=== PATIENT | male | born 1995 | race Caucasian/White ===

== ENCOUNTER 2017-10-03 11:09 | Inpatient (IN) | payer BC, OTHER ==
[~2017-10-03] VITALS: Ht 185.4 cm; Wt 73.5 kg
--- NOTE | 2017-10-03 13:16 | NUR ---
PREADMISSION Pt 22 y/o male admitted for polysubstance abuse/ withdrawal. Pt came from [facility]. Pt states he is homeless. Pt alert and oriented to name, place, and time. P[place]. Skin warm and moist to touch. Respirations even and unlabored. Bilateral hand tremors noted. Pt appears disheveled, unkempt, and malodorous. Hair uncombed. Pt anxious and restless, not able to sit still during assessment. Observed tapping foot during assessment. Initial ciwa=4 cows=8. Initial b=113/78 p=77 o2=97%@ra R=16 T=98.3. Pt was seen and evaluated by . Explained unit rules to pt with acknowledgement.
[2017-10-03] MEDS ORDERED: GABA600T2 PO (13:18)
[2017-10-03] MEDS ORDERED: GABA-534 PO (13:18)
--- NOTE | 2017-10-03 13:18 | NUR ---
ADMISSION Pt 22 y/o male admitted for polysubstance abuse/ withdrawal. Pt came from [facility]. Pt states he is homeless. Pt alert and oriented to name, place, and time. Perrla. Skin warm and moist to touch. Respirations even and unlabored. Bilateral hand tremors noted. Pt with skin clear. Pt mildly intoxicated. Pt appears disheveled, unkempt, and malodorous. Hair uncombed. Pt anxious and restless, not able to sit still during assessment. Observed tapping foot during assessment. Initial ciwa=4 cows=8. Initial b=113/78 p=77 o2=97%@ra R=16 T=98.3. Pt denies any SZ history. Pt was seen by MD and started on a 3 day valium and 4 day subutex taper, beginning today. Pt states does not have PCP. Oriented pt to unit and room. Bed on lowest position with side rails x2 up for safety. Call light within reach. Pt states longest period of sobriety was for 1 year and about 3months, but recently relapsed. Pt states has poor impulse control. Pt states," I need help. I need to stop. I don't want to . I need a place where I can stay longer in treatment to help me." Pt states his internal motivator,""Knowing that I deserve more in life than I'm giving myself now.". Pt states has been to multiple treatments recently but not able to complete treatment. substance hx: -suboxone SL 8 mg day x 1.5 days. Last used 10/03/17 4mg. Total 1.5 days -valium po unknown dose daily x 1.5 days. Last used 10/03/17 unknown dose. Total 1.5 days. -ativan po 1mg daily x 1week. Last used 09/30/17 1mg. Total 1 week. -xanax po/snort 1-3 bars daily x 3months. Last used 09/30/17 1 bar. Total 5 years -heroin smoke1 daily x 3months. Last used 09/30/17 and used about or less than 1gm. Total 2 years -Fentanyl smoked 0.5gm daily x1 month. Last used 09/30/17 0.5gm. Total 1 month -Adderral po unknown dose and not able to specify last use. treatment hx: -[facility] 09/30/17-10/03/17 -[facility] 09/23/17-09/29/17 medical hx: asthma
[2017-10-03] MEDS ORDERED: CLON0.1T PO (13:22)
[2017-10-03] MEDS ORDERED: ONDA4TAB5 PO (13:24)
[2017-10-03] MEDS ORDERED: TRAZ-147 PO (13:26)
[2017-10-03] MEDS ORDERED: CLONIDINE HCL 0.1 MG TABLET PO PRN (13:30)
[2017-10-03] MEDS ORDERED: IBUPROFEN 600 MG TABLET PO PRN (13:30)
[2017-10-03] MEDS ORDERED: diphenhydrAMINE 50 MG CAPSULE PO PRN (13:30)
[2017-10-03] MEDS ORDERED: LOPERAMIDE HCL 2 MG CAPSULE PO PRN ×2 (13:30)
[2017-10-03] MEDS ORDERED: MIRALAX 17 GM POWD.PACK PO PRN (13:30)
[2017-10-03] MEDS ORDERED: DIAZEPAM 10 MG TABLET PO PRN ×2 (13:30)
[2017-10-03] MEDS ORDERED: ACETAMINOPHEN 325 MG TABLET PO PRN (13:30)
[2017-10-03] MEDS ORDERED: DIAZEPAM 5 MG TABLET PO PRN (13:30)
[2017-10-03] MEDS ORDERED: BUPRENORPHINE HCL 2 MG TAB.SUBL SL PRN (13:30)
[2017-10-03] MEDS ORDERED: NICOTINE POLACRILEX 4 MG GUM-PK OF TEN BC PRN (13:30)
[2017-10-03] MEDS ORDERED: MAGNESIUM HYDROXIDE 30 ML LIQUID UDC PO PRN (13:30)
[2017-10-03] MEDS ORDERED: MAG HYDROX/AL HYDROX/SIMETH 30 ML LIQUID UDC PO PRN (13:30)
[2017-10-03] MEDS ORDERED: ONDANSETRON ODT 4 MG TAB.RAPDIS SL PRN (13:30)
[2017-10-03] MEDS ORDERED: DICYCLOMINE HCL 20 MG TABLET PO PRN (13:30)
[2017-10-03] MEDS ORDERED: ONDANSETRON 4 MG/2 ML VIAL IM PRN (13:30)
[2017-10-03] MEDS ORDERED: NICOTINE 14 MG/24HR PATCH TD PRN (13:30)
[2017-10-03] MEDS ORDERED: METH-406 PO (13:45)
[2017-10-03] MEDS ORDERED: ALBU18HF2 INH (13:46)
[2017-10-03 14:53] LABS: *AMPHETAMINE, URINE POSITIVE (NEGATIVE); *BARBITURATE, URINE NEGATIVE (NEGATIVE); *CANNABINOID, URINE NEGATIVE (NEGATIVE); *COCCAINE, URINE NEGATIVE (NEGATIVE); *OPIATE, URINE POSITIVE (NEGATIVE); *PHENCYCLIDINE SCREEN,URINE NEGATIVE (NEGATIVE)
[2017-10-03 15:00] LABS: BASOPHILS % (AUTO) 0.2 % (0.0-2.0); EOSINOPHILS # (AUTO) 0.6 K/uL (0.0-0.7); EOSINOPHILS % (AUTO) 8.3 % (0.0-7.0); HEMOGLOBIN 16.1 g/dL (12.5-16.3); LYMPHOCYTES # (AUTO) 2.4 K/uL (20.0-40.0); LYMPHOCYTES % (AUTO) 35.7 % (20.5-51.5); MEAN CORPUSCULAR HEMOGLOBIN 31.4 uug (23.8-33.4); MEAN CORPUSCULAR HGB CONC 35 g/dL (32.5-36.3); MEAN CORPUSCULAR VOLUME 89.7 fL (73.0-96.2); MONOCYTES # (AUTO) 0.4 K/uL (2.0-10.0); MONOCYTES % (AUTO) 5.5 % (0.0-11.0); NEUTROPHILS # (AUTO) 3.4 K/uL (1.8-8.9); NEUTROPHILS % (AUTO) 50.3 % (38.5-71.5); PLATELET COUNT (AUTO) 232 K/uL (152-348); RED BLOOD CELL COUNT(AUTO) 5.13 MIL/uL (4.06-5.63); WHITE BLOOD COUNT (AUTO) 6.8 K/uL (3.6-10.2)
[2017-10-03 15:11] LABS: ALANINE AMINOTRANSFERASE 28 U/L (16-63); ALKALINE PHOSPHATASE 56 U/L (50-136); ASPARTATE AMINOTRANSFERASE 14 U/L (15-37); BILIRUBIN,TOTAL 0.3 mg/dL (0.2-1.0); CARBON DIOXIDE 26 mmol/L (21-32); CHLORIDE 105 mmol/L (98-107); CREATININE 1.1 mg/dL (0.6-1.3); GLUCOSE 117 mg/dL (74-106); POTASSIUM 3.8 mmol/L (3.5-5.1); TOTAL PROTEIN, SERUM 6.8 g/dL (6.4-8.2); UREA NITROGEN, BLOOD 16 mg/dL (7-18)
[2017-10-03] MEDS: DIAZEPAM 10 MG TABLET PO SCH ×2 (15:19→22:32)
[2017-10-03] MEDS: BUPRENORPHINE HCL 2 MG TAB.SUBL SL SCH ×2 (15:19→21:00)
[2017-10-03] MEDS: METHOCARBAMOL 750 MG TABLET PO PRN (15:19)
--- NOTE | 2017-10-03 15:21 | NUR ---
PRN Pt with complaints of body aches 7/10 generalized. Robaxin po prn per MD order given and tolerated well.
[2017-10-03 15:23] LABS: ETHANOL < 3 MG/DL (0-0)
[2017-10-03 16:00] VITALS: BP 88/40
--- NOTE | 2017-10-03 16:00 | NUR ---
CIWA/ COWS DEFERRED Pt in room on bed with eyes closed resting, but arousable to name, moves and changes position on bed, but closes eyes after. cows/ciwa deferred.
--- NOTE | 2017-10-03 16:21 | NUR ---
HEAVEN BIANCHI Pt observed on bed in room with eyes closed resting, but arousable to name.
[2017-10-03 17:00] VITALS: BP 92/58
--- NOTE | 2017-10-03 18:38 | NUR ---
END OF SHIFT Pt 22 y/o male admitted for polysubstance abuse/ withdrawal. Pt alert and oriented to name, place, and time. Perrla. Skin warm and moist to touch. Respirations even and unlabored. Bilateral hand tremors noted. Pt appears disheveled and unkempt. Empty water bottles scattered throughout the room. Encouraged to maintain hygiene. Pt admitted this afternoon. Pt isolative to room since admission. Pt was seen by MD today. Pt did not attend group activity. Pt started on a 3 day valium taper and is on day 1. Pt also started on a 4 day subutex taper and is on day 1. Bed on lowest position with side rails x2 up for safety. Call light within reach.
--- NOTE | 2017-10-03 19:12 | NUR ---
Start of shift note Received report from day shift nurse. Pt is a 22 yo male, A+Ox4, presenting to [facility] for Benzo/Opiate withdrawal. Pt noted with restlessness, anxiety, sweats, chills, and agitation. Pt has HX of Asthma, Anxiety, ADHD, and depression which will be monitored during shift. Pt is on 3 day Valium and 4 day Subutex tapers, tolerated well. Respirations even and unlabored. Will continue to monitor.
[2017-10-03 20:08] VITALS: BP 112/63
[2017-10-03] MEDS: GABAPENTIN 300 MG CAPSULE PO SCH (22:33)
[2017-10-03] MEDS: TRAZODONE 100 MG TABLET PO PRN (23:35)
--- NOTE | 2017-10-03 23:35 | NUR ---
PRN Trazodone Pt c/o inability to sleep and requested for PRN Trazodone. Medication given and tolerated well. Will reassess within 1 HR. Will continue to monitor.
--- NOTE | 2017-10-04 00:30 | NUR ---
PRN Trazodone Reassessment Medication effective. Pt is resting well in bed. No s/s of ASE noted at this time. Respirations even and unlabored. Will continue to monitor.
[2017-10-04 00:40] VITALS: BP 118/67
[2017-10-04 04:08] VITALS: BP 114/69
--- NOTE | 2017-10-04 06:54 | NUR ---
End of shift note Pt was continuously noted with agitation, anxiety, and restlessness. Pt was in room for majority of shift except to get food from kitchen, to go smoke on smoking on smoking patio, and to interact with other patients in recreational room. Pt was given PRN Trazodone @2335. Pt slept for a total of 8 HRS. Last COWS: 7 and Last CIWA: 7 @0400. Respirations tyson and unlabored. Will endorse to day shift nurse.
--- NOTE | 2017-10-04 07:25 | NUR ---
START OF SHIFT Pt 22 y/o male admitted for polysubstance abuse/ withdrawal. Pt received in room on bed with eyes closed resting, but easily arousable to name. Pt alert and oriented to name, place, and time. Perrla. Skin warm and moist to touch. Respirations even and unlabored. Bilateral hand tremors noted. Pt observed restless in bed this morning, not able to lay still. Pt appears disheveled and unkempt. Food wrappings and empty water bottles scattered throughout the room. Encouraged to maintain hygiene. It was reported that pt slept for 8 hours last night. Last cows=7 ciwa=7 reported at 0400. Bed on lowest position with side rails x2 up for safety. Call light within reach. Addendum: 10/04/17 at 0805 by SUMAN ANGEL RN additional Pt is on a 3 day valium taper and is on day 2. Pt is also on a 4 day subutex taper and is on day 2.
[2017-10-04 08:19] VITALS: BP 102/62
[2017-10-04] MEDS: GABAPENTIN 300 MG CAPSULE PO SCH ×2 (08:24→22:38)
[2017-10-04] MEDS: DIAZEPAM 5 MG TABLET PO SCH ×3 (08:24→22:38)
--- NOTE | 2017-10-04 08:33 | NUR ---
PRN Pt with c/o wheezing. Albuterol inh prn per MD order given and tolerated well.
[2017-10-04] MEDS: VENTOLIN INH PRN ×2 (08:38→13:55)
[2017-10-04] MEDS: BUPRENORPHINE HCL 2 MG TAB.SUBL SL SCH ×3 (08:38→21:00)
[2017-10-04] MEDS ORDERED: TUBERCULIN,PURIF.PROT.DERIV. 5 TU/0.1 ML TEST ID ONE (09:00)
[2017-10-04] MEDS ORDERED: HYDROXYZINE PAMOATE 25 MG CAPSULE PO PRN (09:00)
--- NOTE | 2017-10-04 09:33 | NUR ---
PRN EVAL Pt denies any dyspnea at this time.
[2017-10-04 11:07] LABS: HEPATITIS B SURFACE AG Negative (Negative)
--- NOTE | 2017-10-04 12:00 | NUR ---
COWS/ CIWA DEFERRED Pt in bed in room with eyes closed resting, arousable to name. Respirations even and unlabored.
[2017-10-04 12:27] VITALS: BP 129/64
--- NOTE | 2017-10-04 13:55 | NUR ---
PRN Pt with c/o wheezing. Albuterol inh prn per MD order given and tolerated well.
--- NOTE | 2017-10-04 14:55 | NUR ---
PRN EVAL Pt denies any dyspnea at this time.
[2017-10-04 16:00] VITALS: BP 95/58
--- NOTE | 2017-10-04 18:41 | NUR ---
END OF SHIFT Pt 22 y/o male admitted for polysubstance abuse/ withdrawal. Pt alert and oriented to name, place, and time. Perrla. Skin warm and moist to touch. Respirations even and unlabored. Bilateral hand tremors noted. Pt with periods of anxiety this morning. Pt appears disheveled and unkempt. Empty water bottles scattered throughout the room. Encouraged to maintain hygiene. Pt admitted this afternoon. Pt isolative to room for most of day. Pt did not attend group activity today. Pt was seen by MD today. Pt medication compliant and tolerated well. No ASE noted. Pt started on a 3 day valium taper and is on day 2. Pt also started on a 4 day subutex taper and is on day 2. Cows=9@0800, deferred@1200, and 9@1600. Ciwas=9@0800, deferred @1200, and 9@1600. Bed on lowest position with side rails x2 up for safety. Call light within reach.
--- NOTE | 2017-10-04 19:15 | NUR ---
Start of shift note Received report from day shift nurse. Pt is a 22 yo male, A+Ox4, presenting to [facility] for Benzo/Opiate withdrawal. Pt noted to be anxious, agitated, odorous, and restless. Pt has HX of Asthma, Anxiety, ADHD, and depression. Pt is on 3 day Valium and 4 day Subutex tapers, tolerated well. Respirations even and unlabored. Will continue to monitor.
[2017-10-04 20:23] VITALS: BP 127/77
[2017-10-04] MEDS: TRAZODONE 100 MG TABLET PO PRN (22:38)
--- NOTE | 2017-10-04 22:38 | NUR ---
PRN Trazodone Pt c/o inability to sleep and requested for PRN Trazodone. Medication given and tolerated well. Will reassess within 1 HR. Will continue to monitor.
[2017-10-05 00:28] VITALS: BP 124/71
[2017-10-05 04:25] VITALS: BP 118/75
--- NOTE | 2017-10-05 06:55 | NUR ---
End of shift note Pt was continuously noted with anxiety, restlessness, and agitation. Pt remained in room for majority of shift except to go smoke on smoking patio, to get food from kitchen, and to interact with other patients in recreational room. Pt was given PRN Trazodone @2238. Pt slept for a total of 8 HRS. Last COWS: 9 and Last CIWA: 9 @0400. Respirations even and unlabored. Will endorse to day shift nurse.
--- NOTE | 2017-10-05 07:05 | NUR ---
Start of Shift Commercial Agent received report on 22 year old male admitted to [facility] on 10/03/17 for medical management of Opiate, Adderall and Benzodiazepine withdrawals. Pt endorses allergies to rabbit dander , is a full code and eats a regular diet. Endorses PMH of asthma with a PPH of anxiety, ADHD and Depression DO. Pt currently on a Subutex and Valium taper, tolerating well, last COWS 9 and CIWA 9, per NOC report. Pt has been refusing Subutex and has been taking Valium to help with the anxiety. Pt was administered Trazodone(insomnia) PRN on NOC, per report. Commercial Agent encounters pt resting in pts room with eyes closed, rise and fall of chest noted. Even and unlabored respirations. Bed in low position, with wheels locked and side rails up x2. Will continue to monitor, support and encourage according to plan of care.
[2017-10-05 08:18] VITALS: BP 98/48
[2017-10-05] MEDS: BUPRENORPHINE HCL 2 MG TAB.SUBL SL SCH ×2 (09:00→21:00)
--- NOTE | 2017-10-05 09:00 | NUR ---
0900 Subutex Pt refuses scheduled Subutex. is aware.
[2017-10-05] MEDS: VENTOLIN INH PRN ×2 (09:33→16:47)
--- NOTE | 2017-10-05 09:35 | NUR ---
PRN PT REQUESTED HIS INHALER; ALBUTEROL INHALER PRN GIVEN FOR DYSPNEA. SAFETY MEASURES IN PLACE.
[2017-10-05] MEDS: GABAPENTIN 300 MG CAPSULE PO SCH ×3 (09:37→21:42)
[2017-10-05] MEDS: DIAZEPAM 5 MG TABLET PO SCH ×2 (09:37→21:42)
[2017-10-05 12:20] VITALS: BP 119/70
[2017-10-05] MEDS ORDERED: CLON0.1T14 PO (13:06)
[2017-10-05] MEDS ORDERED: IBUP-1955 PO (13:06)
[2017-10-05] MEDS ORDERED: DICY20TA28 PO (13:06)
[2017-10-05] MEDS ORDERED: GABA-534 PO (13:06)
[2017-10-05] MEDS ORDERED: HYDR-3895 PO (13:06)
[2017-10-05] MEDS ORDERED: METH-406 PO (13:06)
[2017-10-05] MEDS: METHOCARBAMOL 750 MG TABLET PO PRN ×2 (14:40→23:19)
--- NOTE | 2017-10-05 14:40 | NUR ---
HEAVEN Swann Pt complain of generalized muscle aches and discomfort and requested medication by name. Front Sight Attacher administered medication per order and pt tolerated well. Will continue to monitor, support and encourage according to plan of care.
--- NOTE | 2017-10-05 15:40 | NUR ---
PRN Re-Assessment Pt endorses relief, " not as bad, it is tolerable." Pt resting, will continue to monitor, support and encourage according to plan of care.
[2017-10-05 16:45] VITALS: BP 122/77
--- NOTE | 2017-10-05 16:47 | NUR ---
PRN PT C/O SOB AND REQUESTED HIS INHALER. ALBUTEROL INH GIVEN AND PT TOLERATED WELL.
--- NOTE | 2017-10-05 19:05 | NUR ---
End of Shift Health It Specialist provided. report on 22 year old male admitted to [facility] on 10/03/17 for medical management of Opiate, Adderall and Benzodiazepine withdrawals. Pt endorses allergies to rabbit dander , is a full code and eats a regular diet. Endorses PMH of asthma with a PPH of anxiety, ADHD and Depression DO. Pt currently on a Subutex and Valium taper, tolerating well, last COWS 8 and CIWA 7. Pt refused his Subutex medication this am, made aware. Pt was administered Inhaler(SOB) x2 and Robaxin(muscle spasms) PRN on this shift. Pt is A/O x4 and able to make needs known. Bright affect with a congruent mood, social with peers and staff. Calm, cooperative and pleasant. Bed in low position, with wheels locked and side rails up x2. Will continue to monitor, support and encourage according to plan of care.
--- NOTE | 2017-10-05 19:15 | NUR ---
Start of Shift Note: Patient is a 22 y.o male admitted on 10/03/17 for medically supervised withdrawal from Opiate and Benzo withdrawals. Patient is alert & oriented x4. Patient appears disheveled, has anxious/irritable mood. Pt presented with complaints of sweating, chills, nausea, generalized body aches & stuffy nose. Pt is on Subutex and Valium taper. Pt has been refusing Subutex and only takes Valium taper. Last COWS 8 CIWA 7. Pt received PRN Robaxin and Albuterol during day shift and was effective per report. Encourage attends groups and socialize with other patients. Encourage pt to increase fluid intake. Educated current plan of care. Safety measures in place. Will continue to closely monitor patient.
[2017-10-05 20:00] VITALS: BP 130/79
--- NOTE | 2017-10-05 21:00 | NUR ---
2100 Subutex Pt refused scheduled Subutex at 2100. Per pt, he does not need it and he is okay with just taking the Valium taper. COWS 8 noted at this time. Explained risk and benefits of refusing medication but pt still refused. Will continue to monitor patient.
--- NOTE | 2017-10-05 21:42 | NUR ---
PRN Clonidine/Motrin/Zofran Patient complained with 7/10 generalized body aches, sweating, chills, & nausea with no episode of vomiting. Non-pharmacological intervention provided but ineffective. PRN Clonidine, Motrin & Zofran SL administered as ordered. Will monitor for effectiveness of medication.
--- NOTE | 2017-10-05 22:42 | NUR ---
PRN Reassessment Patient verbalized improved nausea, decreased in sweating, chills & pain from 7/10 to 4/10 after medication administration. Pt observed ambulating in the hallway with no facial grimacing noted. Patient appears calm. Safety measures in place. Will continue to monitor patient.
[2017-10-05] MEDS: TRAZODONE 100 MG TABLET PO PRN (23:19)
--- NOTE | 2017-10-05 23:19 | NUR ---
PRN Trazodone & Robaxin Patient unable to fall asleep d/t complaints of 6/10 generalized body aches. PRN Robaxin & Trazodone administered as ordered. Will monitor for effectiveness of medication.
--- NOTE | 2017-10-06 00:19 | NUR ---
PRN Reassessment Patient asleep in bed and appears comfortable. No s/s of pain/discomfort noted at this time. Respiration even & unlabored. Safety measures in place. Will continue to monitor patient.
--- NOTE | 2017-10-06 07:16 | NUR ---
End of Shift Note: Patient is a 22 y.o male admitted 10/03/17 for medically supervised withdrawal from Opiate and Benzos. Patient is alert & oriented x4. Patient continues on his Subutex and Valium taper and tolerating well. Pt refused scheduled Subutex at 2100 and was educated of risks and benefits of medication. Patient presented with anxiety, agitation, sweating, chills, nausea, stuffy nose, body aches & restlessness. Last COWS is 8 CIWA 7. Patient received PRN Clonidine, Motrin, Zofran, Trazodone and Robaxin during my shift and were effective. Pt stable at this time. Pt remains compliant with treatment and medications. Will continue to closely monitor s/s of withdrawal. Encourage pt to increase fluid intake. Fluid intake: 1596 ml, Voided 3x with 2x bowel movement. Pt slept for a total of 6 hours. All needs attended & met. Safety measures in place. Will endorse pt to day shift nurse.
--- NOTE | 2017-10-06 07:17 | NUR ---
Start of Shift Hogshead Builder received report on 22 year old male admitted to [facility] on 10/03/17 for medical management of Opiate, Adderall and Benzodiazepine withdrawals. Pt endorses allergies to rabbit dander , is a full code and eats a regular diet. Endorses PMH of asthma with a PPH of anxiety, ADHD and Depression DO. Pt currently on a Subutex and Valium taper, tolerating well, last COWS 8 and CIWA 7, per NOC report. Pt refused scheduled dose of Subutex. Pt was administered Trazodone(insomnia), Robaxin(muscle spasms), Clonidine(anxiety-chills), Motrin(pain) and Zofran(nausea) PRN on NOC, per report. Hogshead Builder encounters pt resting in pts room with eyes closed, rise and fall of chest noted. Even and unlabored respirations. Bed in low position, with wheels locked and side rails up x2. Will continue to monitor, support and encourage according to plan of care.
[2017-10-06 08:46] VITALS: BP 109/70
[2017-10-06] MEDS ORDERED: BUPRENORPHINE HCL 2 MG TAB.SUBL SL SCH (09:00)
[2017-10-06] MEDS ORDERED: DIAZEPAM 5 MG TABLET PO SCH (09:00)
[2017-10-06] MEDS: GABAPENTIN 300 MG CAPSULE PO SCH ×3 (09:49→23:02)
[2017-10-06 12:26] VITALS: BP 104/54
[2017-10-06] MEDS: METHOCARBAMOL 750 MG TABLET PO PRN (16:08)
--- NOTE | 2017-10-06 16:08 | NUR ---
PRN Robaxin Pt complain of muscle spasms and tightness. Reports, " starting to get uncomfortable, can I get Robaxin?" Photovoltaic Subcontractor administered medication per order with pt tolerating well. Will continue to monitor, support and encourage according to plan of care.
[2017-10-06 16:29] VITALS: BP 118/75
--- NOTE | 2017-10-06 19:03 | NUR ---
End of Shift Hot Strip Finisher provided report on 22 year old male admitted to [facility] on 10/03/17 for medical management of Opiate, Adderall and Benzodiazepine withdrawals. Pt endorses allergies to rabbit dander , is a full code and eats a regular diet. Endorses PMH of asthma with a PPH of anxiety, ADHD and Depression DO. Hot Strip Finisher has completed his tapers in anticipation of discharge tomorrow morning, pt did refuse last dose of Subutex at 0900, MD aware. Last COWS 4 and CIWA 4 at 1630. Pt was administered PRN Robaxin(muscle spasms) this shift. Pt has been bright, social and pleasant. Pt makes needs known. A/O x4. Clear of thought and speech. Bed in low position, with wheels locked and side rails up x2.
--- NOTE | 2017-10-06 19:30 | NUR ---
START OF SHIFT Patient is a 22-year-old admitted on 10/03/17 for opiate and benzo withdrawal. Patient has completed his 3-day Valium and 4-day Subutex tapers, tolerated well, scheduled for discharge tomorrow. Patients last COWS was 4 and last CIWA was 4 per day shift nurse. Patient received PRN Robaxin, noted as effective. Upon assessment, patient is alert and oriented x4. Patient complains of anxiety related to tomorrows discharge. Patient is on fall and seizure precautions, but denies any seizure history. Safety measures in place, side rails up x2, bed locked in low position, call light within reach. Will continue to monitor.
[2017-10-06 20:00] VITALS: BP 114/78
[2017-10-06] MEDS: TRAZODONE 100 MG TABLET PO PRN (23:02)
[2017-10-06] MEDS: VENTOLIN INH PRN (23:02)
--- NOTE | 2017-10-06 23:02 | NUR ---
PRN TRAZODONE Patient reports difficulty sleeping, PRN Trazodone given PO. Safety measures in place, call light within reach. Will monitor for effectiveness.
[2017-10-07] VITALS: BP 118/56
--- NOTE | 2017-10-07 | NUR ---
COWS & CIWA DEFERRED COWS and CIWA deferred due to patient sleeping; to be assessed and scored while patient is awake. Safety measures in place, call light within reach. Will continue to monitor.
--- NOTE | 2017-10-07 00:02 | NUR ---
PRN TRAZODONE REASSESSMENT Patient is observed in bed with eyes closed, respirations even and unlabored. PRN Trazodone effective. Safety measures in place, call light within reach. Will continue to monitor.
[2017-10-07 04:00] VITALS: BP 112/64
--- NOTE | 2017-10-07 04:00 | NUR ---
COWS & CIWA DEFERRED COWS and CIWA deferred again at this time due to patient sleeping; to be assessed and scored while patient is awake. Respirations even and unlabored, 16/min. Safety measures in place, side rails up x2, bed locked in low position, call light within reach. Will continue to monitor.
--- NOTE | 2017-10-07 07:20 | NUR ---
END OF SHIFT Patient is a 22-year-old admitted on 10/03/17 for opiate and benzo withdrawal. Patient has completed his 3-day Valium and 4-day Subutex tapers, tolerated well, scheduled for discharge today. Patients last COWS was 5 and last CIWA was 6. Patient received PRN Trazodone during shift, noted as effective. Patient slept for 7 hours, total intake of 1,298mL, void x3, stool x0. Patient is on fall and seizure precautions, but denies any seizure history. Safety measures in place, side rails up x2, bed locked in low position, call light within reach. Will endorse to day shift.
--- NOTE | 2017-10-07 08:00 | NUR ---
START OF SHIFT: RECEIVED PT A/O X 4. HE HAS COMPLETED ATIVAN/SUBUTEX TAPERS AND DISCHARGE PLANNING IN PROGRESS FOR THIS AM. COWS 2 CIWA 2. HE STATES HE HAS MILD ANXIETY BUT STATES HE FEELS MOTIVATED TO STAY CLEAN AND SOBER. WILL CONTINUE WITH DISCHARGE PROCESS.
[2017-10-07] MEDS: GABAPENTIN 300 MG CAPSULE PO SCH (08:26)
--- NOTE | 2017-10-07 10:00 | NUR ---
DISCHARGE: PT IS A/O X 4. HE DENIES S/I AND H/I. HE STATES HE FEELS ENTHUSIASTIC TOWARD RECOVERY. BELONGINGS RETURNED. EDUCATED PT ON DISCHARGE MEDS AND INSTRUCTIONS. PT EXPRESSED VERBAL UNDERSTANDING OF EDUCATION . AVIATION MANAGER ESCORTED PT TO [facility] WHERE HE WAS TRANSPORTED BY [employer] TO [facility] AT 0930.
== END 2017-10-07 09:30 | disposition other institution (70) | DRG 895 ==
LOC: SRC 12:24
PROVIDERS: ADMIT Internal Medicine; ATTEND Internal Medicine
PROC: HZ2ZZZZ Detoxification Services for Substance Abuse Treatment (ICD-10-PCS; principal; 2017-10-03)
PROC: HZ41ZZZ Group Counseling for Substance Abuse Treatment, Behavioral (ICD-10-PCS; 2017-10-04)
DX: F11.23 Opioid dependence with withdrawal (principal); F12.10 Cannabis abuse, uncomplicated; F13.230 Sedative, hypnotic or anxiolytic dependence with withdrawal, uncomplicated; F15.23 Other stimulant dependence with withdrawal; F14.10 Cocaine abuse, uncomplicated; Z81.1 Family history of alcohol abuse and dependence; Z59.0 Homelessness; Z59.1 Inadequate housing; Z91.5 Personal history of self-harm; Z80.3 Family history of malignant neoplasm of breast; Z81.8 Family history of other mental and behavioral disorders; J45.20 Mild intermittent asthma, uncomplicated; F41.9 Anxiety disorder, unspecified; F90.9 Attention-deficit hyperactivity disorder, unspecified type; Z91.89 Other specified personal risk factors, not elsewhere classified; F17.210 Nicotine dependence, cigarettes, uncomplicated; F32.9 Major depressive disorder, single episode, unspecified; R73.9 Hyperglycemia, unspecified
CPT/HCPCS: 36415; 70030-TC; 80307; 80324; 80346; 80361; 83735; 85025; 86580; 86592; 86705; 86803; 87340; 87806; A4663; G0480; Q0162